=== PATIENT | female | born 1990 | race Caucasian/White ===

== ENCOUNTER 2018-11-05 05:25 | Emergency (ER) | payer MEDICAID, SELFPAY ==
--- NOTE | 2018-11-05 05:22 | W.ED.GENAD ---
Discharge Plan Disposition Patient Disposition: HOME Condition: Stable Discharge Details Chief Complaint: Nausea/Vomit/Diar Clinical Impression: Cannabinoid hyperemesis syndrome Reason For Visit: [facility] ED Provider: Phillip Campo Home Meds and New Rx's Prescriptions: New ondansetron 4 mg tablet,disintegrating 4 mg PO QID PRN (Reason: nausea and vomiting) Qty: 30 RF: 0 Discharge Instructions Instructions: Acute Nausea and Vomiting (ED) Additional Instructions: Your symptoms are likely being exacerbated by your daily use of marijuana. Please try and stop using marijuana every day If symptoms continue in a week see your primary care provider. If you feel you are becoming more ill return to the emergency department Medical Decision Making 27 yo female who denies chronic medical problems and denies daily medications comes in with n/v since Monday. She states she used IV cocaine on Monday but doesn't use often. Does use marijuana everyday. She denies chest pain, sob, abdominal pain. She has no evidence of an infection on her right AC area of her arm where she injected, has some bruising without warmth or tenderness. She has no murmurs or other stigmata of endocarditia. I suspect her symptoms are due to either drug withdrawal or cannabinoid hyperemesis. Has no abdominal tenderness or disttention so doubt entities such as sbo or appendicitis or other surgical pathology. Will tx her symptoms and reassess. She remains stable, labs show no significant concerning findings, mild low K i suspect is from the vomit. She is tolerating PO. She does state that hot showers actually did help over the weekend which I think makes hyperemesis cannabinoid most likely. Will d/c, advised f/u with pcp and return precautions given Differential Diagnosis cannabinoid hyperemesis, drug withdrawal, influenza Lab Data Lab results reviewed: Yes I reviewed the patient's lab results. HPI General Mode of arrival: EMS. Date/Time Provider Initiated Documentation: 11/05/18 05:30. Limitations to Documentation: no limitations. Information obtained by: patient. History of Present Illness 27 year old F presents to the emergency department with the chief complaint of nausea and vomit, described as moderate, Patient started experiencing this day(s) (3) and it has been constant. No relieving factors improve symptom(s), No exacerbating factors reported . Patient notes no other symptoms.. Patient did receive the following treatments prior to arrival, other (zofran odt with ems) Related Data Home Medications Medication Instructions Recorded Confirmed ondansetron 4 mg PO QID PRN #30 tab 11/05/18 Previous Rx's Medication Instructions Recorded ondansetron 4 mg PO QID PRN #30 tab 11/05/18 Allergies Allergy/AdvReac Type Severity Reaction Status Date / Time No Known Allergies Allergy Unverified 11/05/18 05:30 Review of Systems Review of Systems All systems reviewed & are unremarkable except as noted in HPI and below Constitutional Denies chills, Denies fever(s) and Denies weakness Cardiovascular Denies dyspnea Respiratory Denies cough and Denies dyspnea Gastrointestinal Denies abdominal pain Musculoskeletal Denies joint swelling Integumentary/Breasts Denies rash Neurologic Denies weakness [facility] Social History Smoking/Tobacco Use Status: Never Alcohol Intake: current Substance use type: marijuana and IV drugs Details: smokes daily pot, used IV cocaine once Do you feel safe at home: Yes Do you feel safe in your relationship?: Yes Exam Const General: no acute distress Orientation: alert HENMT Head: normal to inspection Ears: external ears normal General nose exam: external nose normal Mouth: moist mucous membranes Eyes General: appearance normal, both eyes and all related structures Neck Neck: normal visual inspection Resp Effort & Inspection: normal respiratory effort and able to speak in complete sentences Cardio Rate: regular rate GI Palpation: soft and nontender Skin General skin exam: no rashes or lesions noted Neuro General: alert and oriented x3 Extrem General: normal to inspection Psych Mental Status: mental status grossly normal
[2018-11-05 05:26] VITALS: BP 146/90; PULSE 88; RESP 24; TEMP 37.9; O2SAT 96
[2018-11-05 05:30] VITALS: BP 127/101; PULSE 83; RESP 30; O2SAT 97
[2018-11-05] MEDS: Normal Saline 1,000 ML 1000 ML IV (05:30)
--- NOTE | 2018-11-05 05:34 | ED.GENADUL_ITS ---
Discharge Plan Disposition Patient Disposition: HOME Condition: Stable Discharge Details Chief Complaint: Nausea/Vomit/Diar Clinical Impression: Cannabinoid hyperemesis syndrome Reason For Visit: [facility] ED Provider: Phillip Campo Home Meds and New Rx's Prescriptions: New ondansetron 4 mg tablet,disintegrating 4 mg PO QID PRN (Reason: nausea and vomiting) Qty: 30 RF: 0 Discharge Instructions Instructions: Acute Nausea and Vomiting (ED) Additional Instructions: Your symptoms are likely being exacerbated by your daily use of marijuana. Please try and stop using marijuana every day If symptoms continue in a week see your primary care provider. If you feel you are becoming more ill return to the emergency department Medical Decision Making 27 yo female who denies chronic medical problems and denies daily medications comes in with n/v since Monday. She states she used IV cocaine on Monday but doesn't use often. Does use marijuana everyday. She denies chest pain, sob, abdominal pain. She has no evidence of an infection on her right AC area of her arm where she injected, has some bruising without warmth or tenderness. She has no murmurs or other stigmata of endocarditia. I suspect her symptoms are due to either drug withdrawal or cannabinoid hyperemesis. Has no abdominal tenderness or disttention so doubt entities such as sbo or appendicitis or other surgical pathology. Will tx her symptoms and reassess. She remains stable, labs show no significant concerning findings, mild low K i suspect is from the vomit. She is tolerating PO. She does state that hot showers actually did help over the weekend which I think makes hyperemesis cannabinoid most likely. Will d/c, advised f/u with pcp and return precautions given Differential Diagnosis cannabinoid hyperemesis, drug withdrawal, influenza Lab Data Lab results reviewed: Yes I reviewed the patient's lab results. HPI General Mode of arrival: EMS . Date/Time Provider Initiated Documentation: 11/05/18 05:30 . Limitations to Documentation: no limitations . Information obtained by: patient . History of Present Illness 27 year old F presents to the emergency department with the chief complaint of nausea and vomit, described as moderate, Patient started experiencing this day(s) (3) and it has been constant. No relieving factors improve symptom(s), No exacerbating factors reported . Patient notes no other symptoms.. Patient did receive the following treatments prior to arrival, other (zofran odt with ems) Related Data Home Medications Medication Instructions Recorded Confirmed ondansetron 4 mg PO QID PRN #30 tab 11/05/18 Previous Rx's Medication Instructions Recorded ondansetron 4 mg PO QID PRN #30 tab 11/05/18 Allergies Allergy/AdvReac Type Severity Reaction Status Date / Time No Known Allergies Allergy Unverified 11/05/18 05:30 Review of Systems Review of Systems All systems reviewed & are unremarkable except as noted in HPI and below Constitutional Denies chills, Denies fever(s) and Denies weakness Cardiovascular Denies dyspnea Respiratory Denies cough and Denies dyspnea Gastrointestinal Denies abdominal pain Musculoskeletal Denies joint swelling Integumentary/Breasts Denies rash Neurologic Denies weakness [facility] Social History Smoking/Tobacco Use Status: Never Alcohol Intake: current Substance use type: marijuana and IV drugs Details: smokes daily pot, used IV cocaine once Do you feel safe at home: Yes Do you feel safe in your relationship?: Yes Exam Const General: no acute distress Orientation: alert HENMT Head: normal to inspection Ears: external ears normal General nose exam: external nose normal Mouth: moist mucous membranes Eyes General: appearance normal, both eyes and all related structures Neck Neck: normal visual inspection Resp Effort & Inspection: normal respiratory effort and able to speak in complete sentences Cardio Rate: regular rate GI Palpation: soft and nontender Skin General skin exam: no rashes or lesions noted Neuro General: alert and oriented x3 Extrem General: normal to inspection Psych Mental Status: mental status grossly normal
[2018-11-05] MEDS: LORazepam 2 MG/ML VIAL 1 MG IVP (05:39)
[2018-11-05 05:41] LABS: Abs Immature Grans 0.03 k/cumm (0.0-0.09); Absolute Eosinophil Count 0.01 k/cumm (0.0-0.7); Absolute Monocyte Count 1.32 k/cumm (0.11-0.7); Basophils % 0.2; Eosinophils % 0.1; HGB 15.4 g/dL (12.0-15.5); Immature Grans % 0.2; Lymphocytes % 28.7; Mean Corp. HGB Concentration 34.2 g/dL (32.0-36.0); Mean Corpuscular Hemoglobin 30.6 pg (27.0-33.0); Mean Corpuscular Volume 89.3 fL (80-95); Monocytes % 10.6; Neutrophils % 60.2; Platelet Count 427 x1000/uL (130-400); RBC 5.04 m/cumm (4.00-5.20); RBC Distribution Width 12.8 % (11.7-14.6); White Blood Cell Count 12.49 k/cumm (4.4-10.8)
[2018-11-05 05:42] LABS: Absolute Basophil Count 0.02 k/cumm (0.0-0.2); Absolute Lymphocyte Count 3.58 k/cumm (1.2-3.4); Absolute Neutrophil Count 7.52 k/cumm (1.2-6.7)
[2018-11-05 05:45] VITALS: BP 128/76; PULSE 69; RESP 18; O2SAT 91
[2018-11-05 05:56] LABS: ALT 68 U/L (12-78); AST 39 U/L (15-37); Albumin 4.1 g/dL (3.4-5.0); Alkaline Phosphatase 151 U/L (46-116); BUN 13 mg/dL (7-18); Bilirubin, Direct 0.22 mg/dL (0.00-0.20); Bilirubin, Total 0.8 mg/dL (0.2-1.0); CREATININE 1.02 mg/dL (0.55-1.02); Calcium 9.8 mg/dL (8.5-10.1); Chloride 100 mmol/L (98-107); Glucose 142 mg/dL (70-100); Lipase 68 U/L (73-393); Magnesium 1.6 mg/dL (1.8-2.4); Potassium 3.1 mmol/L (3.5-5.1); Sodium 139 mmol/L (136-145); Total Protein 8.5 g/dL (6.4-8.2)
[2018-11-05 06:00] VITALS: BP 132/74; PULSE 68; RESP 18; O2SAT 90
[2018-11-05 06:15] VITALS: BP 128/71; PULSE 72; RESP 18; O2SAT 92
[2018-11-05 06:21] LABS: HCG Qual (Serum) Negative
[2018-11-05 06:22] LABS: ETHANOL BLOOD < 3.0 mg/dL (<3)
--- NOTE | 2018-11-05 06:37 | NUR.NOTE ---
Nursing Note: ice chips tolerated, nausea lessened.
[2018-11-05] MEDS: Potassium Chloride 20 MEQ TABCR 40 MEQ PO (06:57)
[2018-11-05 07:12] VITALS: BP 120/76; PULSE 73; RESP 16; TEMP 37.3; O2SAT 98
--- NOTE | 2018-11-05 11:01 | PDOC.ERCMPRO ---
Care Management Progress Note 11/05-Met with Destinee and her friend Arsalan. Destinee was not willing to give any information to access. She states she has [place] Medicaid but does not know the number. Discussed her social security number would work but Destinee states she can't remember it. Discussed an emergency contact to add to the chart if something were to happen. Destinee requested that Arsalan Guerrero (friend who is here with her) be listed, home number is [phone] cell number is [phone]. Arsalan refused to give this CM an address, would only say he lived in [place]. Destinee states her mother is coming to pick her up and I can ask for her social security number then. About an hour or so later, a woman did come to [employer] picker Destinee. States she is Destinee's aunt and does not know Destinee's social security number. Asked for Destinee's mother's name and phone number. Both woman stated that Destinee's mom's phone does not have any minutes and they don't know the phone number. This CM notified access of the above information and Phylicia will update the account.
--- NOTE | 2018-11-05 11:08 | CMPROGNOTE_ITS ---
Care Management Progress Note 11/05-Met with Destinee and her friend Arsalan. Destinee was not willing to give any information to access. She states she has [place] Medicaid but does not know the number. Discussed her social security number would work but Destinee states she can't remember it. Discussed an emergency contact to add to the chart if something were to happen. Destinee requested that Arsalan Guerrero (friend who is here with her) be listed, home number is [phone] cell number is [phone]. Arsalan refused to give this CM an address, would only say he lived in [place]. Destinee states her mother is coming to pick her up and I can ask for her social security number then. About an hour or so later, a woman did come to [employer] pick[employer] [place]. States she is Destinee's aunt and does not know Destinee's social security number. Asked for Destinee's mother's name and phone number. Both woman stated that Destinee's mom's phone does not have any minutes and they don't know the phone number. This CM notified access of the above information and Phylicia will update the account.
== END 2018-11-05 07:00 | disposition home or self-care (01) ==
LOC: ER 07:11
PROVIDERS: Emergency Provider Emergency Medicine
DX: R11.10 Vomiting, unspecified (principal); F12.188 Cannabis abuse with other cannabis-induced disorder
CPT/HCPCS: 36415; 80053; 80076; 81025; 83690; 87449; 96361; 96365; 96375; 99284; 80320; 83735; 84703; 85025; 99283; J2060

== ENCOUNTER 2019-03-27 09:46 | Emergency (ER) | payer MEDICAID, SELFPAY ==
[2019-03-27 09:51] VITALS: BP 115/59; PULSE 69; RESP 18; TEMP 36.4; O2SAT 100
--- NOTE | 2019-03-27 10:03 | DI.US_ITS ---
SYMPTOM/DIAGNOSIS: VOMITING, DIARRHEA, RUQ EPIGASTRIC PAIN, ABDOMEN ULTRASOUND: The liver is normal in size and echogenicity. The gallbladder appears normal, without evidence of stones or wall thickening. No biliary dilatation is seen. The right kidney shows minimal fullness of the renal pelvis. The kidneys are normal in size and echogenicity. The spleen, aorta and pancreas appear normal. There is no fluid. The right lower quadrant was also scanned. A normal appendix is visible. The patient was not tender around this area. A large quantity of stool was noted. IMPRESSION: Normal appearing gallbladder. No evidence of appendicitis. Increased stool.
--- NOTE | 2019-03-27 10:04 | ED.GENADUL_ITS ---
Discharge Plan Disposition Patient Disposition: HOME Condition: Good Discharge Details Chief Complaint: Abd Prob Clinical Impression: Nausea & vomiting Primary Care Provider: None,None ED Provider: Pool Chapa Home Meds and New Rx's Prescriptions: No Action ondansetron 4 mg tablet,disintegrating 4 mg PO QID PRN (Reason: nausea and vomiting) Qty: 30 RF: 0 Discharge Instructions Instructions: Acute Nausea and Vomiting (ED) Additional Instructions: Please drink plenty of fluids, avoid any fatty or greasy foods. Avoid any spicy foods. Please follow-up closely with your primary care provider for your mild hydroureter that was noted on the right. if you notice any worsening of your symptoms, or any new symptoms such as vomiting, diarrhea, fever, chills, shortness of breath, chest pain, numbness, weakness, or fainting , please return immediately to the emergency department for reevaluation. Please follow up with your primary care provider as soon as possible for reassessment and reevaluation. As always, it was a pleasure participating in your medical care today. Medical Decision Making This is a 28-year-old female who is a G4, P2 currently 20 weeks who presents for vomiting. 7 AM she felt nauseous, had 4 episodes of vomiting, and occasional loose stool. She does admit to mild epigastric achi ness. She denies any numbness or tingling. She denies any vaginal discharge or pelvic pain. Exam demonstrates minimal epigastric tenderness. She is slightly shaky. She denies any dysuria or flank pain. Differential is highest for normal vomiting in , but also includes gastroenteritis from a virus, pancreatitis. We will rehydrate, get an ultrasound to evaluate the gallbladder and appendix, and treat the patient's nausea. 12:06 pm Patient's ultrasound results have returned and per Dr. Thrasher no evidence of acute appendicitis, appendix was visualized. Gallbladder normal. Exam otherwise benign. Fetus appeared normal. Heart rate normal. There is mild hydroureter on the right. Patient denies any flank pain. Urinalysis is benign, no evidence of infection or blood. She denies any dysuria or hematuria on reassessment. Unfortunately there was a notable delay placing the IV for the patient secondary to patient vein difficulty. When I did go into place an ultrasound-guided IV the patient states that now on reassessment she feels completely better. She has no abdominal pain nausea or vomiting. We did do a p.o. trial with water and crackers and she tolerated this well. She states that she feels very well and would like to go home now. I discussed that although she has not completed the work-up at this time there is still risk for incomplete evaluation, with the worse case scenario of this being patient's demise, demise, or lifelong disability for the patient of the fetus. Patient understands this. This time with a complete resolution of symptoms she would still like to go home. With toleration of p.o. my feel that this is reasonable to respect her wishes. Patient will be discharged home with close follow-up. Recommend gentle fluid hydration at home, avoiding any fatty wolf, and close reassessment. We also discussed the importance of reassessment with her PCP and OB for further reassessment of this mild hydroureter. I have extensively reviewed the treatment plan and discharge instructions with the patient and their family. I have addressed all patient concerns at this time. The patient and family was made aware of what symptoms to monitor for that would warrant a return to the emergency department. Discussed the plan with the patient and family, they demonstrate verbal understanding and agreement with our assessment and plan at this time. HPI General Date/Time Provider Initiated Documentation: 03/27/19 09:47 . HPI Narrative: This is a 28-year-old female who is a G4, P2 who is currently 20 weeks who presents today for evaluation of nausea vomiting and diarrhea and mild epigastric pain. Patient is on chronic methadone. Patient states that at 7 this morning she woke up was notably nauseous, she vomited 4-5 times. She has not been able to keep anything down. She has had a few episodes of loose stool, vomiting and diarrhea have both been nonbloody. She has had chills, felt sweaty, and has had associated epigastric and right upper quadrant pain. Pain is slightly improved now after driving here to the ED, but pain is still aching and otherwise present. She did not take her methadone this morning, and would like to hold off on any methadone at this time. Patient denies any vaginal discharge, dysuria, or hematuria. She denies any other complaints at this time. No other modifying factors. She denies any previous abdominal surgeries. She denies any other medications. She denies any significant medication changes aside for a slight increase in methadone a week ago. Related Data Home Medications Medication Instructions Recorded Confirmed ondansetron 4 mg PO QID PRN #30 tab 11/05/18 Previous Rx's Medication Instructions Recorded ondansetron 4 mg PO QID PRN #30 tab 11/05/18 Allergies Allergy/AdvReac Type Severity Reaction Status Date / Time No Known Allergies Allergy Unverified 12/21/18 12:00 General Stated Complaint: Abd Prob ESVIN: 3 Review of Systems Review of Systems All systems reviewed & are unremarkable except as noted in HPI and below [facility] Social History (System 12/21/18 @ 12:00 by Virginia Fernandez) Smoking/Tobacco Use Status: Current every day Tobacco Type: cigarettes Alcohol Intake: never Substance use type: marijuana Details: smokes daily pot, used IV cocaine once Do you feel safe at home: Yes Do you feel safe in your relationship?: Yes Exam Narrative Exam Narrative: 1.Const: Well-nourished, Well-developed, appearing stated age 2.Eyes: PERRL, no conjunctival injection, and symmetrical lids. 3.ENT: Atraumatic external nose and ears. dry MM. Neck: Symmetric, trachea midline, No thyromegaly. 4.CVS: +S1/S2, No murmurs or gallops. Peripheral pulses 2+ and equal in all extremities. Brisk capillary refill in all extremities. 5.RESP: Unlabored respiratory effort. Clear to auscultation bilaterally. No wheezes rales or rhonchi 6.GI: Soft,Nondistended, No hepatosplenomegaly. No guarding or rebound. Minimal epigastric tenderness. Appropriately gravid abdomen. No pelvic or suprapubic pain. No pain in the right lower quadrant. Negative obturator and psoas sign. No pain at McBurney's point. 7.MSK: Normocephalic/Atraumatic, Extremities w/o deformity or ttp No cyanosis or clubbing, Normal movement of all extremities 8.Skin: Warm, Dry. No rashes or lesions. 9.Neuro: quality engineer medical device II-XII grossly intact. Sensation grossly intact, no focal neurologic deficits. 10.Psych: (AAO) x3. Appropriate mood and affect Course Vital Signs Temperature 36.4 C L 03/27/19 09:51 Pulse 69 03/27/19 09:51 Respiratory Rate 18 03/27/19 09:51 Blood Pressure 115/59 L 03/27/19 09:51 Pulse Oximetry 100 03/27/19 09:51 Temperature 36.4 C L 03/27/19 09:51 Temperature Source Skin 03/27/19 09:51 Pulse 69 03/27/19 09:51 Respiratory Rate 18 03/27/19 09:51 Respiratory Effort Non-Labored 03/27/19 09:53 Blood Pressure 115/59 L 03/27/19 09:51 Blood Pressure Position Sitting 03/27/19 09:51 Pulse Oximetry 100 03/27/19 09:51 Oxygen Delivery Method Room Air 03/27/19 09:51 Oxygen Flow Rate 0 03/27/19 09:51 Pain Level 5 03/27/19 09:56
[2019-03-27 10:48] LABS: Bilirubin Negative (Negative); Blood Negative (Negative); Clarity Cloudy (Clear); Glucose Negative (Negative); Ketones Negative (Negative); Leukocyte Esterase Negative (Negative); Nitrite Negative (Negative); Urobilinogen 0.2 EU/dL (Up TO 0.2)
== END 2019-03-27 12:20 | disposition home or self-care (01) ==
PROVIDERS: Emergency Provider Student in an Organized Health Care Education/Training Program
DX: R10.13 Epigastric pain (principal); N13.4 Hydroureter; R11.2 Nausea with vomiting, unspecified; R19.7 Diarrhea, unspecified; Z33.1 Pregnant state, incidental; Z3A.20 20 weeks gestation of pregnancy; O99.322 Drug use complicating pregnancy, second trimester; O99.332 Smoking (tobacco) complicating pregnancy, second trimester; F17.210 Nicotine dependence, cigarettes, uncomplicated; F12.10 Cannabis abuse, uncomplicated; F11.21 Opioid dependence, in remission
CPT/HCPCS: 80053; 83690; 99284; 76700; 81003; 85025; 87086

== ENCOUNTER 2019-07-19 15:12 | Emergency (ER) | payer MEDICAID, SELFPAY ==
[2019-07-19 15:15] VITALS: BP 113/71; PULSE 86; RESP 18; TEMP 36.6; O2SAT 99
--- NOTE | 2019-07-19 15:58 | ED.GENADUL_ITS ---
Discharge Plan Disposition Patient Disposition: HOME Discharge Details Chief Complaint: GenMedical Clinical Impression: Withdrawal complaint Primary Care Provider: Guy Jamison ED Provider: Kevin Flores Home Meds and New Rx's Prescriptions: Discontinued ondansetron 4 mg tablet,disintegrating 4 mg PO QID PRN (Reason: nausea and vomiting) Qty: 30 RF: 0 Discharge Instructions Additional Instructions: Please follow-up with the [facility] tomorrow for your regular methadone dosing. Please follow-up with Angelica Flood on Monday. Please contact your primary care physician to arrange follow-up. Return to the ER for any worsening or new concerning symptoms. Referrals: Angelica Flood, RYAN [NURSE PRACTITIONER] - Medical Decision Making 16:00 --28-year-old female, 35 weeks , currently on daily methadone dosing, here after missing her dose this morning, requesting methadone dosing. Patient is hemodynamically stable. Attempting to contact provider motel front desk clerk for [facility]. --I spoke with Angelica Flood, nurse practitioner at [facility] who recommends treating with 50 mg of methadone today and having her go to [facility] for full dose in the morning. She recommends follow-up with her on Monday. Plan discussed with patient is in agreement. HPI General Mode of arrival: ambulatory . Date/Time Provider Initiated Documentation: 07/19/19 15:14 . Limitations to Documentation: no limitations . Information obtained by: patient . HPI Narrative: 28-year-old female, 35 weeks , on methadone, here requesting methadone dosing. Patient states that she missed her methadone dose this morning. She typically takes 95mg. She feels like she has mild withdrawal. Related Data Allergies Allergy/AdvReac Type Severity Reaction Status Date / Time No Known Allergies Allergy Unverified 12/21/18 12:00 General Stated Complaint: GenMedical ESVIN: 5 Review of Systems All systems reviewed & are unremarkable except as noted in HPI and below Cardiovascular Cardiovascular: Denies chest pain and Denies dyspnea Respiratory Respiratory: Denies dyspnea PFSH Social History Smoking/Tobacco Use Status: Current every day Tobacco Type: cigarettes Alcohol Intake: never Substance use type: marijuana Details: smokes daily pot, used IV cocaine once Do you feel safe at home: Yes Do you feel safe in your relationship?: Yes Exam Const General: cooperative, healthy appearing and no acute distress Orientation: alert and awake HENMT Mouth: moist mucous membranes Eyes Conjunctivae: normal conjunctivae Sclera: normal sclerae Neck Neck: trachea midline and supple Resp Auscultation: clear to auscultation bilaterally, no rales, no rhonchi and no wheezes Cardio Jugular venous pressure: no JVD Rate: regular rate and not tachycardic Rhythm: regular rhythm Skin General skin exam: no rashes or lesions noted Neuro General: alert, awake, oriented x3 and tone normal Extrem General: no edema Psych Appearance: grossly normal Mental Status: mental status grossly normal Speech and Movement: speech and movement normal Course Vital Signs Vital signs: Vital Signs Temperature 36.6 C 07/19/19 15:15 Pulse 86 07/19/19 15:15 Respiratory Rate 18 07/19/19 15:15 Blood Pressure 113/71 07/19/19 15:15 Pulse Oximetry 99 07/19/19 15:15 Temperature 36.6 C 07/19/19 15:15 Temperature Source Skin 07/19/19 15:15 Pulse 86 07/19/19 15:15 Respiratory Rate 18 07/19/19 15:15 Respiratory Effort 07/19/19 15:20 Blood Pressure 113/71 07/19/19 15:15 Blood Pressure Position Sitting 07/19/19 15:15 Pulse Oximetry 99 07/19/19 15:15
[2019-07-19] MEDS: Methadone Liquid 10 MG/ML 50 MG PO (16:48)
== END 2019-07-19 16:50 | disposition home or self-care (01) ==
PROVIDERS: Emergency Provider Student in an Organized Health Care Education/Training Program; PCP Family Medicine
DX: F11.23 Opioid dependence with withdrawal (principal); O99.323 Drug use complicating pregnancy, third trimester; Z3A.35 35 weeks gestation of pregnancy; O99.333 Smoking (tobacco) complicating pregnancy, third trimester; F17.210 Nicotine dependence, cigarettes, uncomplicated; F12.10 Cannabis abuse, uncomplicated
CPT/HCPCS: 99283

== ENCOUNTER 2019-07-21 17:37 | Outpatient (CLI) | payer MEDICAID, SELFPAY | END 2019-07-21 17:57 | PROVIDERS: PCP Family Medicine; Visit Provider Family Medicine | DX: O46.8X3 Other antepartum hemorrhage, third trimester (principal); Z3A.37 37 weeks gestation of pregnancy | CPT/HCPCS: 59025; 87081 ==

== ENCOUNTER 2019-07-29 15:12 | Emergency (ER) | payer MEDICAID, SELFPAY ==
[2019-07-29 15:16] VITALS: BP 147/85; PULSE 96; TEMP 36.7; O2SAT 100
== END 2019-07-29 15:26 | disposition other institution (70) ==
LOC: ER 16:37
PROVIDERS: PCP Family Medicine
DX: Z04.89 Encounter for examination and observation for other specified reasons (principal)

== ENCOUNTER 2019-07-29 15:30 | Inpatient (IN) | payer MEDICAID, SELFPAY ==
[2019-07-29 18:00] LABS: HCT 30.6 % (36.0-46.0); HGB 9.7 g/dL (12.0-15.5); Mean Corp. HGB Concentration 31.7 g/dL (32.0-36.0); Mean Corpuscular Hemoglobin 27.9 pg (27.0-33.0); Mean Corpuscular Volume 87.9 fL (80-95); Mean Platelet Volume 10.7 fL (8.0-11.0); RBC 3.48 m/cumm (4.00-5.20); RBC Distribution Width 13.3 % (11.7-14.6); White Blood Cell Count 18.28 k/cumm (4.4-10.8)
[2019-07-29] MEDS: Lactated Ringers 500 ML IV (18:26)
[2019-07-29] MEDS: Bupivacaine 0.25% Pres-Free 30 ML VIAL ×2 (19:24)
[2019-07-29] MEDS: fentaNYL 100 MCG/2 ML VIAL (19:26)
[2019-07-29] MEDS: Nicotine 21 MG/24 HR PATCH TD (22:10)
[2019-07-29] MEDS: Ibuprofen 600 MG TAB PO (22:59)
[2019-07-30 07:45] LABS: HCT 33.7 % (36.0-46.0); HGB 10.5 g/dL (12.0-15.5); Mean Corp. HGB Concentration 31.2 g/dL (32.0-36.0); Mean Corpuscular Hemoglobin 27.3 pg (27.0-33.0); Mean Corpuscular Volume 87.5 fL (80-95); Mean Platelet Volume 10.8 fL (8.0-11.0); RBC 3.85 m/cumm (4.00-5.20); RBC Distribution Width 13.5 % (11.7-14.6); White Blood Cell Count 18.22 k/cumm (4.4-10.8)
[2019-07-30] MEDS: Acetaminophen 325 MG TAB 650 MG PO (09:21)
[2019-07-30] MEDS: Famotidine 20 MG TAB PO (09:21)
[2019-07-30] MEDS: Ferrous Sulfate 325 MG TAB PO (09:21)
[2019-07-30] MEDS: Ibuprofen 600 MG TAB PO (09:22)
[2019-07-30] MEDS: Methadone Liquid 10 MG/ML 95 MG PO (09:22)
== END 2019-07-30 12:35 | disposition home or self-care (01) | DRG 806 ==
PROVIDERS: Admitting Provider Family Medicine; PCP Family Medicine; Visit Provider Family Medicine
DX: O99.324 Drug use complicating childbirth (principal); F11.20 Opioid dependence, uncomplicated; Z37.0 Single live birth; Z3A.39 39 weeks gestation of pregnancy; O99.02 Anemia complicating childbirth; O99.334 Smoking (tobacco) complicating childbirth; D64.9 Anemia, unspecified; F14.10 Cocaine abuse, uncomplicated; F17.210 Nicotine dependence, cigarettes, uncomplicated
CPT/HCPCS: 36415; 85027; 85461; 86850; 86900; 86901; 90384; 86870; J2790; J3010; J3490